=== PATIENT | female | born 1995 | race Caucasian/White ===

== ENCOUNTER → 2019-07-26 | Outpatient (CLI) | payer OTHER ==
[~2019-07-26] MED LIST: APRI; CEPH500 PO; CODACE30 PO; RXCODACET PO
[2019-07-30 08:07] LABS: CHLAMYDIA TRACHOMATIS, NAA Negative (Negative); NEISSERIA GONORRHOEAE, NAA Negative (Negative)
== END | disposition home or self-care (01) ==
LOC: LAB 12:05 → LAB SHORT 12:05
PROVIDERS: Advanced Practice Midwife
DX: Z01.419 Encounter for gynecological examination (general) (routine) without abnormal findings (principal); Z11.3 Encounter for screening for infections with a predominantly sexual mode of transmission
CPT/HCPCS: 87491; 87591; G0123

== ENCOUNTER → 2024-05-25 | Outpatient (CLI) | payer OTHER ==
[2024-05-27 21:44] LABS: CYCLIC CITRULLINATED PEP,IGG/A 5 Units (0-19)
[2024-05-27 22:15] LABS: ANTI-NUCLEAR AB ANA,IGG ELISA None Detected (None Detected)
== END ==
LOC: LAB 12:48 → LAB SHORT 12:48
PROVIDERS: Nurse Practitioner Family
DX: M25.50 Pain in unspecified joint (principal); R21 Rash and other nonspecific skin eruption; R42 Dizziness and giddiness; R53.81 Other malaise; R53.83 Other fatigue
CPT/HCPCS: 85651; 86038; 86140; 86200; 86430